=== PATIENT | female | born 1980 | race Caucasian/White ===

== ENCOUNTER 2021-05-28 12:17 | Emergency (ER) | payer MEDICAID ==
[~2021-05-28] VITALS: Ht 162.6 cm; Wt 77.1 kg
[2021-05-28 12:28] VITALS: BP 104/77
--- NOTE | 2021-05-28 13:00 | NUR ---
40 Y/O F AMBULATED TO BED 4, C/O VAG. PAIN AND BURNING WITH URINATION X 3 DAYS. SEEN AT THE CLINIC YESTERDAY AND RECEIVED BACTRIM, DXYCLINE & MOTRIN. NKDA
--- NOTE | 2021-05-28 13:04 | NUR ---
PT WAS ASKED TO PROVIDE URINE BUT SHE IS UNABLE TO DO SO AT THIS TIME, DR DUNHAM MADE AWARE.
[2021-05-28] MEDS: LIDOCAINE 2% 1000 MG/50 ML VIAL INJ ONE (13:25)
--- NOTE | 2021-05-28 13:25 | NUR ---
DR DUNHAM AT BEDSIDE FOR MSE
[2021-05-28] MEDS: HYDROcodone/APAP 10/325 MG 1 TAB TAB PO ONE ×2 (13:32→16:53)
--- NOTE | 2021-05-28 13:34 | NUR ---
I&D SET UP BY CRISELDA FRANCISCO
[2021-05-28] MEDS ORDERED: IBUP-2213 PO (16:09)
[2021-05-28] MEDS ORDERED: HYDR-5080 PO (16:09)
[2021-05-28] MEDS ORDERED: SULF-59 PO (16:09)
[2021-05-28] MEDS: ONDANSETRON 4 MG ODT PO ONE (16:53)
[2021-05-28 17:30] VITALS: BP 105/62
--- NOTE | 2021-05-28 17:30 | NUR ---
Patient discharged with v/s stable. Written and verbal after care instructions given and explained. Patient alert, oriented and verbalized understanding of instructions. Ambulatory with steady gait TO CAR WITH DRIVING. All questions addressed prior to discharge. ID band removed. Patient advised to follow up with PMD. Rx of given. Patient educated on indication of medication including possible reaction and side effects. Opportunity to ask questions provided and answered. Addendum: 05/28/21 at 1734 by EDDY Patient discharged with v/s stable. Written and verbal after care instructions given and explained. Patient alert, oriented and verbalized understanding of instructions. Ambulatory with steady gait TO CAR WITH DRIVING. All questions addressed prior to discharge. ID band removed. Patient advised to follow up with PMD. Rx of NORCO 7.5-325, IBUPROFEN, BACTRIM given. Patient educated on indication of medication including possible reaction and side effects. Opportunity to ask questions provided and answered.
== END 2021-05-28 17:30 | disposition home or self-care (01) ==
LOC: MED 12:17
DX: N75.1 Abscess of Bartholin's gland (principal)
CPT/HCPCS: 56420; 81002; 99285; J2001; Q0162

== ENCOUNTER 2021-09-08 20:03 | Emergency (ER) | payer MEDICAID ==
[~2021-09-08] VITALS: Ht 162.6 cm; Wt 87.5 kg
[~2021-09-08 20:03] MED LIST: HYDR-5080 PO; IBUP-2213 PO; SULF-59 PO
[2021-09-08 20:10] VITALS: BP 120/81
[2021-09-08] MEDS ORDERED: KETOROLAC 60 MG/2 ML VIAL IM ONE (20:30)
--- NOTE | 2021-09-08 20:30 | NUR ---
41 Y/O FEMALE BIB FAMILY FROM HOME, C/O BACK PAIN FROM ABCESS IN [facility]. PT STATES SHE HAS HAD THE ABCESS FOR 10 YEARS BUT ONLY IN THE PAST WEEK HAS IT GOTTEN WORSE. ABCESSIS APPROX 1 INCH IN DIAPETER, RAISED, RED AND PAINFUL. A/OX4, GCS-15; UNLABORED BREATHING AND SPEAKING IN FULL SENTENCES; AMBULATORY W/O ASSISTANCE. DENIES PMH NKA NO MEDS
--- NOTE | 2021-09-09 00:54 | NUR ---
ER MD AT BEDSIDE PERFORMING PROCEDURE
[2021-09-09] MEDS ORDERED: CEPH-588 PO (01:41)
[2021-09-09] MEDS ORDERED: IBUP-2213 PO (01:41)
[2021-09-09 01:56] VITALS: BP 124/87
--- NOTE | 2021-09-09 01:57 | NUR ---
Patient discharged with v/s stable. Written and verbal after care instructions given and explained. Patient alert, oriented and verbalized understanding of instructions. Ambulatory with steady gait. All questions addressed prior to discharge. ID band removed. Patient advised to follow up with PMD. Rx of KEFLEX AND IBUPROFEN given. Patient educated on indication of medication including possible reaction and side effects. Opportunity to ask questions provided and answered. VSS, A/OX4, UNLABORED BREATHING, AMBULATORY, AND CALM DEMEANOR.
== END 2021-09-09 01:57 | disposition home or self-care (01) ==
LOC: MED 20:03
DX: L72.8 Other follicular cysts of the skin and subcutaneous tissue (principal)
CPT/HCPCS: 10060; 81002; 81025; 96372; 99284; J1885